=== PATIENT | male | born 1975 | race Two or more races ===

== ENCOUNTER 2023-07-02 00:42 | Inpatient (IN) | payer BC, OTHER ==
[2023-07-02] VITALS (17 sets, daily range): BP systolic 83–129; BP diastolic 62–83; TEMP 97.6–98.2; O2SAT 92–99
[~2023-07-02] VITALS: Ht 180.3 cm; Wt 72.6 kg
[2023-07-02] MEDS ORDERED: CEFEPIME 1 GM VIAL ONE (00:57)
[2023-07-02] MEDS: CEFEPIME 1 GM in IV D5W 50 ML IV ONE (01:01)
[2023-07-02] MEDS: IV NS 0.9% 1,000 ML BAG IV ONE (01:01)
[2023-07-02] MEDS ORDERED: ACETAMINOPHEN 650 MG/SUPP.RECT RC ONE (01:04)
[2023-07-02] MEDS: ACETAMINOPHEN 650 MG/SUPP.RECT RC ONE (01:16)
[2023-07-02] MEDS ORDERED: VANCOMYCIN 1 GM /D5W 250 ML PB IV ONE (01:17)
[2023-07-02 01:19] LABS: BASOPHILS % (AUTO) 0.3 % (0.0-2.0); EOSINOPHILS # (AUTO) 0.1 K/uL (0.0-0.7); EOSINOPHILS % (AUTO) 0.4 % (0.0-6.0); HEMATOCRIT 40 % (39-51); HEMOGLOBIN 13.3 g/dL (13.5-17.5); LYMPHOCYTES # (AUTO) 0.7 K/uL (0.8-4.8); LYMPHOCYTES % (AUTO) 5.1 % (20.0-44.0); MEAN CORPUSCULAR HEMOGLOBIN 30 PG (26.0-33.0); MEAN CORPUSCULAR HGB CONC 34 g/dl (31.0-36.0); MEAN CORPUSCULAR VOLUME 90 fL (80-96); MONOCYTES # (AUTO) 0.8 K/uL (0.1-1.30); MONOCYTES % (AUTO) 6.1 % (2.0-12.0); NEUTROPHILS # (AUTO) 11.7 K/uL (1.8-8.9); NEUTROPHILS % (AUTO) 88.1 % (43.0-81.0); PLATELET COUNT (AUTO) 246 K/uL (150-450); RED BLOOD CELL COUNT(AUTO) 4.44 MIL/uL (4.5-6.0); WHITE BLOOD COUNT (AUTO) 13.2 K/uL (4.3-11.0)
[2023-07-02 01:27] LABS: CALCIUM, SERUM 8.6 mg/dL (8.5-10.1); CARBON DIOXIDE 28 mmol/L (21-32); CHLORIDE 105 mmol/L (98-107); CREATININE 1.5 mg/dL (0.6-1.3); GLUCOSE 114 mg/dL (74-106); POTASSIUM 4.2 mmol/L (3.5-5.1); SODIUM SERUM 142 mmol/L (136-145); UREA NITROGEN, BLOOD 31 mg/dL (7-18)
[2023-07-02] MEDS: VANCOMYCIN 1 GM in IV D5W 250 ML IV ONE (01:31)
[2023-07-02 01:33] LABS: ALANINE AMINOTRANSFERASE 46 U/L (12-78); ALBUMIN 3.3 g/dL (3.4-5.0); ALKALINE PHOSPHATASE 134 U/L (46-116); ASPARTATE AMINOTRANSFERASE 34 U/L (15-37); BILIRUBIN,DIRECT 0.1 mg/dL (0.0-0.2); BILIRUBIN,TOTAL 0.3 mg/dL (0.2-1.0)
[2023-07-02 01:37] LABS: LACTIC ACID 3.1 mmol/L (0.4-2.0)
[2023-07-02 02:13] LABS: PARTIAL THROMBOPLASTIN TIME 30.5 SEC (24.3-34.3); PROTHROMBIN TIME 10.6 SECS (9.2-11.1)
[2023-07-02 02:24] LABS: APPEARANCE,URINE CLEAR (CLEAR); BILIRUBIN,URINE NEGATIVE (NEGATIVE); BLOOD, URINE 3+ Ery/uL (NEGATIVE); COLOR,URINE YELLOW (YELLOW); KETONES,URINE NEGATIVE (NEGATIVE); LEUKOCYTE ESTERASE ,URINE NEGATIVE (NEGATIVE); NITRITE, URINE NEGATIVE (NEGATIVE); PROTEIN,URINE NEGATIVE (NEGATIVE); UGLUCOSE NEGATIVE (NEGATIVE); UROBILINOGEN,URINE 0.2 EU/dL (0.2)
[2023-07-02] MEDS ORDERED: IOHEXOL-300 100 ML VIAL IV ONE (02:31)
[2023-07-02] MEDS ORDERED: CT SWABBABLE VALVE TRANS SET 1 EA INFUS.SET MC ONE (02:32)
[2023-07-02] MEDS ORDERED: IV NS 0.9% 250 ML IV ONE (02:32)
[2023-07-02 02:33] LABS: RBC,URINE 21-50 /HPF (0-2)
[2023-07-02 02:34] LABS: ADD URINE CULTURE NO; BACTERIA,URINE None seen /HPF (None Seen); SQUAMOUS EPITHELIAL CELL,UR Rare /HPF (None Seen); WBC,URINE 0-2 /HPF (0-3)
[2023-07-02] MEDS ORDERED: Z GUARD REMEDY 4 OZ OINT TP PRN (04:00)
[2023-07-02] MEDS ORDERED: MAGNESIUM HYDROXIDE 30 ML UDC PO PRN (04:00)
[2023-07-02] MEDS ORDERED: ACETAMINOPHEN 650 MG/SUPP.RECT RC PRN (04:00)
[2023-07-02] MEDS ORDERED: ONDANSETRON HCL/PF 4 MG/2 ML VIAL IVP PRN (04:00)
[2023-07-02] MEDS ORDERED: MAG HYDROX/AL HYDROX/SIMETH 30 ML UDC PO PRN (04:00)
[2023-07-02] MEDS ORDERED: ALBUTEROL FS 2.5 MG/3 ML VIAL.NEB NEB PRN (04:30)
[2023-07-02] MEDS: IV D5/0.45 NACL 1,000 ML IV SCH (05:05)
[2023-07-02 06:45] LABS: BASOPHILS % (AUTO) 0.1 % (0.0-2.0); EOSINOPHILS # (AUTO) 0.1 K/uL (0.0-0.7); EOSINOPHILS % (AUTO) 0.3 % (0.0-6.0); HEMATOCRIT 34 % (39-51); HEMOGLOBIN 11.3 g/dL (13.5-17.5); LYMPHOCYTES # (AUTO) 1.3 K/uL (0.8-4.8); LYMPHOCYTES % (AUTO) 6.9 % (20.0-44.0); MEAN CORPUSCULAR HEMOGLOBIN 30 PG (26.0-33.0); MEAN CORPUSCULAR HGB CONC 33 g/dl (31.0-36.0); MEAN CORPUSCULAR VOLUME 91 fL (80-96); MONOCYTES # (AUTO) 1.7 K/uL (0.1-1.30); MONOCYTES % (AUTO) 9.4 % (2.0-12.0); NEUTROPHILS # (AUTO) 15.2 K/uL (1.8-8.9); NEUTROPHILS % (AUTO) 83.3 % (43.0-81.0); PLATELET COUNT (AUTO) 217 K/uL (150-450); RED BLOOD CELL COUNT(AUTO) 3.75 MIL/uL (4.5-6.0); RED CELL DISTRIBUTION WIDTH 14.1 % (11.5-15.0); WHITE BLOOD COUNT (AUTO) 18.3 K/uL (4.3-11.0)
[2023-07-02 07:34] LABS: CALCIUM, SERUM 7.5 mg/dL (8.5-10.1); CREATININE 1.4 mg/dL (0.6-1.3); POTASSIUM 4.6 mmol/L (3.5-5.1)
[2023-07-02] MEDS: IPRATROPIUM NEB FS 0.5 MG/2.5 ML AMPUL.NEB NEB SCH (08:10)
[2023-07-02] MEDS ORDERED: GABA300C GT (09:17)
[2023-07-02] MEDS ORDERED: TEMA7.5C12 GT (09:17)
[2023-07-02] MEDS ORDERED: LACT10SO4 GT (09:17)
[2023-07-02] MEDS ORDERED: POLY17PO4 GT (09:17)
[2023-07-02] MEDS ORDERED: MULT-213 GT (09:17)
[2023-07-02] MEDS ORDERED: PROP15DR EACHEYE (09:17)
[2023-07-02] MEDS ORDERED: FINA1TAB11 GT (09:17)
[2023-07-02] MEDS ORDERED: LORA-259 GT (09:17)
[2023-07-02] MEDS ORDERED: CLON1TAB GT (09:17)
[2023-07-02] MEDS ORDERED: QUET50TA GT (09:17)
[2023-07-02] MEDS ORDERED: ALLO100T GT (09:17)
[2023-07-02] MEDS ORDERED: BISA10SU11 RC (09:17)
[2023-07-02] MEDS ORDERED: MAGN400O6 GT (09:17)
[2023-07-02] MEDS ORDERED: APIX5TAB GT (09:17)
[2023-07-02] MEDS ORDERED: FLEC50TA3 GT (09:17)
[2023-07-02] MEDS ORDERED: MINE105O TP (09:17)
[2023-07-02] MEDS ORDERED: MEMA5TAB GT (09:17)
[2023-07-02] MEDS ORDERED: ESCI10TA GT (09:17)
[2023-07-02] MEDS ORDERED: ACET-868 GT (09:17)
[2023-07-02] MEDS: PANTOPRAZOLE 40 MG VIAL IV SCH (09:37)
[2023-07-02] MEDS: DOCUSATE SODIUM 100 MG CAPSULE PO SCH (09:37)
[2023-07-02] MEDS: VANCOMYCIN 1 GM in IV D5W 250 ML IV SCH (09:41)
[2023-07-02] MEDS: ENOXAPARIN SODIUM 40 MG/0.4 ML DISP.SYRIN SQ SCH (10:31)
[2023-07-02 11:08] LABS: BAND % (MANUAL) 5 % (0.0-5.0); LYMPHOCYTES % (MANUAL) 6 % (16-48); MONOCYTES % (MANUAL) 9 % (0-11.0); NEUTROPHILS % (MANUAL) 80 (42-76); PLATELET ESTIMATE ADEQUATE
[2023-07-02 11:09] LABS: ANISOCYTOSIS 1+
[2023-07-02] MEDS: CEFEPIME 2 GM in IV D5W 100 ML IV SCH (12:20)
[2023-07-02] MEDS ORDERED: LORAZEPAM 1 MG TABLET GT PRN (14:00)
[2023-07-02] MEDS: MEMANTINE HCL 5 MG TABLET GT SCH (17:10)
[2023-07-02] MEDS: QUETIAPINE FUMARATE 25 MG TABLET GT SCH (17:11)
[2023-07-02] MEDS: clonazePAM 1 MG TABLET GT SCH (17:11)
[2023-07-02] MEDS: APIXABAN 5 MG TABLET GT SCH (17:12)
[2023-07-02] MEDS: OLANZAPINE 10 MG VIAL IM PRN (17:59)
[2023-07-02] MEDS ORDERED: CEFEPIME 1 GM in IV D5W 50 ML IV SCH (21:00)
[2023-07-02] MEDS: GABAPENTIN 300 MG CAPSULE GT SCH (21:39)
[2023-07-02] MEDS: TEMAZEPAM 7.5 MG CAPSULE GT SCH (21:39)
[2023-07-03] VITALS (20 sets, daily range): BP systolic 92–141; BP diastolic 47–79; TEMP 98.4–99.3; O2SAT 93–99
[2023-07-03] MEDS: LORAZEPAM 1 MG TABLET GT PRN (00:28)
[2023-07-03] MEDS: HYDROCODONE/APAP 5/325MG TABLET GT PRN (01:18)
[2023-07-03] MEDS: ESCITALOPRAM OXALATE (10 MG) 10 MG TABLET GT SCH (08:48)
[2023-07-03] MEDS: ALLOPURINOL 100 MG TABLET GT SCH (08:48)
[2023-07-03] MEDS ORDERED: FLECAINIDE ACETATE 50 MG TABLET GT SCH (09:00)
[2023-07-03] MEDS ORDERED: Medication Not On Formulary EA (Finasteride 1 MG) GT SCH (09:00)
[2023-07-03] MEDS: JEVITY 1.2 CAL 1,000 ML BOTTLE GT PRN (09:42)
[2023-07-03 10:17] LABS: BASOPHILS % (AUTO) 0.3 % (0.0-2.0); EOSINOPHILS # (AUTO) 0.3 K/uL (0.0-0.7); HEMATOCRIT 37 % (39-51); HEMOGLOBIN 12.1 g/dL (13.5-17.5); LYMPHOCYTES # (AUTO) 1.6 K/uL (0.8-4.8); LYMPHOCYTES % (AUTO) 11.2 % (20.0-44.0); MEAN CORPUSCULAR HEMOGLOBIN 30 PG (26.0-33.0); MEAN CORPUSCULAR HGB CONC 33 g/dl (31.0-36.0); MEAN CORPUSCULAR VOLUME 91 fL (80-96); MONOCYTES # (AUTO) 1.4 K/uL (0.1-1.30); MONOCYTES % (AUTO) 9.5 % (2.0-12.0); PLATELET COUNT (AUTO) 218 K/uL (150-450); RED BLOOD CELL COUNT(AUTO) 4.06 MIL/uL (4.5-6.0); WHITE BLOOD COUNT (AUTO) 14.3 K/uL (4.3-11.0)
[2023-07-03] MEDS: FLECAINIDE ACETATE (100 MG) 100 MG TABLET GT SCH (10:21)
[2023-07-03 10:31] LABS: ALBUMIN 3.1 g/dL (3.4-5.0); BILIRUBIN,TOTAL 0.8 mg/dL (0.2-1.0); CREATININE 1.5 mg/dL (0.6-1.3); POTASSIUM 4.1 mmol/L (3.5-5.1)
[2023-07-03] MEDS ORDERED: MAG HYDROX/AL HYDROX/SIMETH 30 ML UDC GT PRN (11:50)
[2023-07-03] MEDS ORDERED: MAGNESIUM HYDROXIDE 30 ML UDC GT PRN (11:51)
[2023-07-03] MEDS: DOCUSATE SODIUM LIQ 100 MG/10 ML UDC GT SCH (17:21)
[2023-07-04] VITALS (19 sets, daily range): BP systolic 78–103; BP diastolic 60–71; TEMP 97.5–98.4; O2SAT 91–100
[2023-07-04 06:51] LABS: ALBUMIN 2.6 g/dL (3.4-5.0); BILIRUBIN,TOTAL 0.6 mg/dL (0.2-1.0); CALCIUM, SERUM 8.6 mg/dL (8.5-10.1); CREATININE 1.3 mg/dL (0.6-1.3); POTASSIUM 3.8 mmol/L (3.5-5.1); TOTAL PROTEIN, SERUM 6.8 g/dL (6.4-8.2)
[2023-07-04 09:45] LABS: BASOPHILS % (AUTO) 0.4 % (0.0-2.0); EOSINOPHILS # (AUTO) 0.4 K/uL (0.0-0.7); EOSINOPHILS % (AUTO) 6.3 % (0.0-6.0); HEMATOCRIT 43 % (39-51); HEMOGLOBIN 14.2 g/dL (13.5-17.5); LYMPHOCYTES % (AUTO) 15.9 % (20.0-44.0); MEAN CORPUSCULAR HEMOGLOBIN 30 PG (26.0-33.0); MEAN CORPUSCULAR HGB CONC 33 g/dl (31.0-36.0); MEAN CORPUSCULAR VOLUME 91 fL (80-96); MONOCYTES # (AUTO) 0.7 K/uL (0.1-1.30); MONOCYTES % (AUTO) 11.5 % (2.0-12.0); NEUTROPHILS # (AUTO) 4.2 K/uL (1.8-8.9); NEUTROPHILS % (AUTO) 65.9 % (43.0-81.0); PLATELET COUNT (AUTO) 213 K/uL (150-450); RED BLOOD CELL COUNT(AUTO) 4.66 MIL/uL (4.5-6.0); RED CELL DISTRIBUTION WIDTH 14.2 % (11.5-15.0); WHITE BLOOD COUNT (AUTO) 6.4 K/uL (4.3-11.0)
[2023-07-04 18:14] LABS: THYROID STIMULATING HORMONE 1.09 uIU/mL (0.358-3.74)
[2023-07-04] MEDS: QUETIAPINE FUMARATE 25 MG TABLET GT PRN (23:01)
[2023-07-05] VITALS (20 sets, daily range): BP systolic 90–98; BP diastolic 46–70; TEMP 97.4–98.5; O2SAT 93–98
[2023-07-05 08:29] LABS: BASOPHILS % (AUTO) 0.3 % (0.0-2.0); EOSINOPHILS # (AUTO) 0.5 K/uL (0.0-0.7); EOSINOPHILS % (AUTO) 7.1 % (0.0-6.0); HEMATOCRIT 36 % (39-51); HEMOGLOBIN 12.3 g/dL (13.5-17.5); LYMPHOCYTES # (AUTO) 1.2 K/uL (0.8-4.8); LYMPHOCYTES % (AUTO) 17.5 % (20.0-44.0); MEAN CORPUSCULAR HEMOGLOBIN 31 PG (26.0-33.0); MEAN CORPUSCULAR HGB CONC 34 g/dl (31.0-36.0); MEAN CORPUSCULAR VOLUME 90 fL (80-96); MONOCYTES # (AUTO) 0.8 K/uL (0.1-1.30); MONOCYTES % (AUTO) 11.3 % (2.0-12.0); NEUTROPHILS # (AUTO) 4.4 K/uL (1.8-8.9); NEUTROPHILS % (AUTO) 63.8 % (43.0-81.0); PLATELET COUNT (AUTO) 232 K/uL (150-450); RED BLOOD CELL COUNT(AUTO) 4.03 MIL/uL (4.5-6.0); RED CELL DISTRIBUTION WIDTH 13.5 % (11.5-15.0)
[2023-07-05 08:52] LABS: ALBUMIN 2.6 g/dL (3.4-5.0); BILIRUBIN,TOTAL 0.5 mg/dL (0.2-1.0); CALCIUM, SERUM 8.5 mg/dL (8.5-10.1); CREATININE 1.3 mg/dL (0.6-1.3); POTASSIUM 4.1 mmol/L (3.5-5.1); TOTAL PROTEIN, SERUM 6.7 g/dL (6.4-8.2)
[2023-07-05] MEDS ORDERED: VANCOMYCIN 1 GM in IV D5W 250 ML IV SCH (09:00)
[2023-07-05] MEDS: PANTOPRAZOLE 40 MG/PACK PACK GT SCH (09:39)
[2023-07-05] MEDS: VANCOMYCIN HCL 1.25 GM in IV D5W 250 ML IV SCH (22:05)
[2023-07-06] VITALS (16 sets, daily range): BP systolic 91–111; BP diastolic 63–68; TEMP 97.6–98.5; O2SAT 94–99
[2023-07-06 08:26] LABS: BASOPHILS % (AUTO) 0.4 % (0.0-2.0); EOSINOPHILS # (AUTO) 0.4 K/uL (0.0-0.7); EOSINOPHILS % (AUTO) 5.3 % (0.0-6.0); HEMATOCRIT 38 % (39-51); HEMOGLOBIN 12.6 g/dL (13.5-17.5); LYMPHOCYTES # (AUTO) 1.7 K/uL (0.8-4.8); LYMPHOCYTES % (AUTO) 20.5 % (20.0-44.0); MEAN CORPUSCULAR HEMOGLOBIN 30 PG (26.0-33.0); MEAN CORPUSCULAR HGB CONC 33 g/dl (31.0-36.0); MEAN CORPUSCULAR VOLUME 90 fL (80-96); MONOCYTES % (AUTO) 12.8 % (2.0-12.0); NEUTROPHILS # (AUTO) 4.9 K/uL (1.8-8.9); PLATELET COUNT (AUTO) 262 K/uL (150-450); RED BLOOD CELL COUNT(AUTO) 4.22 MIL/uL (4.5-6.0); RED CELL DISTRIBUTION WIDTH 13.8 % (11.5-15.0); WHITE BLOOD COUNT (AUTO) 8.1 K/uL (4.3-11.0)
[2023-07-06 09:47] LABS: ALBUMIN 2.9 g/dL (3.4-5.0); BILIRUBIN,TOTAL 0.6 mg/dL (0.2-1.0); CALCIUM, SERUM 8.8 mg/dL (8.5-10.1); CREATININE 1.4 mg/dL (0.6-1.3); POTASSIUM 4.5 mmol/L (3.5-5.1); TOTAL PROTEIN, SERUM 7.3 g/dL (6.4-8.2)
[2023-07-07] VITALS (16 sets, daily range): BP systolic 78–102; BP diastolic 55–69; TEMP 98–98.5; O2SAT 95–100
[2023-07-07 08:13] LABS: CALCIUM, SERUM 8.5 mg/dL (8.5-10.1); CREATININE 1.3 mg/dL (0.6-1.3); POTASSIUM 4.2 mmol/L (3.5-5.1)
[2023-07-07] MEDS ORDERED: AMOX-430 PO (11:59)
[2023-07-07] MEDS: TEMAZEPAM 7.5 MG CAPSULE GT PRN (22:09)
[2023-07-08] VITALS (8 sets, daily range): BP systolic 100; BP diastolic 63; TEMP 97.5–98; O2SAT 95–99
[2023-07-08 00:09] LABS: FOLIC ACID > 20.0 ng/mL (>3.0)
[2023-07-08 08:08] LABS: CALCIUM, SERUM 9.1 mg/dL (8.5-10.1); CREATININE 1.1 mg/dL (0.6-1.3); POTASSIUM 5.6 mmol/L (3.5-5.1)
[2023-07-08] MEDS: IV NS 0.9% 500 ML IV ONE (20:11)
[2023-07-10 12:07] LABS: METHYLMALONIC ACID 213 nmol/L (0-378)
== END 2023-07-08 22:40 | DRG 871 ==
LOC: ER 00:45 → TELE1 01:34 → TELE-TD 18:36 → MEDSG1 07-03 15:01 → TELE1 07-03 15:32 → MEDSG1 07-05 10:13
PROVIDERS: ADMIT Internal Medicine; ATTEND Internal Medicine
DX: A41.9 Sepsis, unspecified organism (principal); J69.0 Pneumonitis due to inhalation of food and vomit; J96.20 Acute and chronic respiratory failure, unspecified whether with hypoxia or hypercapnia; N17.0 Acute kidney failure with tubular necrosis; N39.0 Urinary tract infection, site not specified; G93.49 Other encephalopathy; R65.20 Severe sepsis without septic shock; D64.9 Anemia, unspecified; E86.0 Dehydration; R13.10 Dysphagia, unspecified; Z93.1 Gastrostomy status; Z93.0 Tracheostomy status; Z87.820 Personal history of traumatic brain injury; V89.2XXS Person injured in unspecified motor-vehicle accident, traffic, sequela; N18.9 Chronic kidney disease, unspecified; F39 Unspecified mood [affective] disorder; Z20.822 Contact with and (suspected) exposure to COVID-19; Z79.899 Other long term (current) drug therapy
CPT/HCPCS: 36415; 70450-TC; 71045-TC; 76770-TC; 80048-TC; 80053-TC; 80076-TC; 80202-TC; 81001; 82607-TC; 83605-TC; 83921; 84439-TC; 84443-TC; 84484-TC; 85025-TC; 85730-TC; 87040-TC; 87081-TC; 87086-TC; 92526; 92611-TC; 94760-TC; 94761-TC; 94762-TC; 94799-TC; 97112-TC; 97530-TC; A4217; A4223; A6253; C9113; G0378; J0692; J1650; J3370; J3490; J7040; J7050; J7060; Q9967